=== PATIENT | male | born 2000 | race Caucasian/White ===

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

== ENCOUNTER 2022-02-20 21:02 | Emergency (ER) | payer OTHER ==
[~2022-02-20] VITALS: Ht 167.6 cm; Wt 81.6 kg
[2022-02-20 21:20] VITALS: BP 148/91
--- NOTE | 2022-02-20 21:27 | NUR ---
Dr. Lo examining patient.
[2022-02-20] MEDS ORDERED: CARB15DR61 OT (21:48)
--- NOTE | 2022-02-20 21:56 | NUR ---
L EAR IRRIGATION DONE PT TOLERATED WELL
[2022-02-20 22:05] VITALS: BP 148/91
--- NOTE | 2022-02-20 22:05 | NUR ---
Patient discharged with v/s stable. Written and verbal after care instructions given and explained. Patient alert, oriented and verbalized understanding of instructions. Ambulatory with steady gait. All questions addressed prior to discharge. ID band removed. Patient advised to follow up with PMD. Rx of Debrox 6.5% Otic given. Patient educated on indication of medication including possible reaction and side effects. Opportunity to ask questions provided and answered.
== END 2022-02-20 22:05 | disposition home or self-care (01) ==
LOC: MED 21:02
DX: H61.22 Impacted cerumen, left ear (principal)
CPT/HCPCS: 99282